=== PATIENT | male | born 1965 | race Caucasian/White ===

== ENCOUNTER 2016-04-16 06:03 | Emergency (ER) | payer BC, OTHER ==
[2016-04-16 06:21] VITALS: TEMP 98; BMI 29.6
[2016-04-16 06:58] LABS: URINE OCCULT BLOOD 2+ (NEG/TRACE); WBC/URINE 0-2 (0-2)
[2016-04-16 07:16] LABS: LEUKOCYTES/URINE UR COLOR MASKS RXN (NEGATIVE); NITRITE/URINE UR COLOR MASKS RXN (NEGATIVE)
[2016-04-16 07:20] LABS: RBC/URINE 30-40 (0-2)
[2016-04-16] MEDS ORDERED: NS 1,000 ML IV ONE (07:31)
[2016-04-16] MEDS ORDERED: MORPHINE 4 MG/ML INJECTION IV ONE (07:31)
[2016-04-16] MEDS ORDERED: ONDANSETRON HCL 4 MG/2 ML VIAL IV ONE (07:31)
[2016-04-16 07:35] VITALS: BP 168/94; PULSE 78
[2016-04-16] MEDS ORDERED: OXYCODONE HCL 5 MG TABLET PO ONE (07:38)
[2016-04-16] MEDS ORDERED: ONDANSETRON HCL 4 MG ODT TAB PO ONE (07:38)
--- NOTE | 2016-04-16 07:41 | EDPRACDOC ---
- General Information Chief Complaint: Male Urogenital Problems Stated Complaint: RT SIDE PAIN Time Seen by Provider: 04/16/16 07:31 Information Source: Patient Mode Of Arrival: Car Home Medications: Home Medications Atorvastatin Calcium [Lipitor] 40 mg PO HS 01/21/15 Cetirizine HCl [Zyrtec] 10 mg PO DAILY 01/21/15 Epinephrine [Epipen] 0.3 mg IM DAILY PRN 01/21/15 FA/Mv,Ca,Iron,Min/Lycopene/Lut [Centrum Tablet] 1 each PO DAILY 01/21/15 L.acidoph & Paracasei,B.lactis [Probiotic] 1 each PO DAILY 01/21/15 Metformin HCl 500 mg PO BID 01/21/15 Methylcellulose [Fiber] 500 mg PO DAILY 01/21/15 Aspirin (OrangeEnteric Coated) [Ecotrin] 325 mg PO BIDWM #90 tablet 02/10/15 Docusate-Senna Concentrate [Senokot S or Esperanza Colace] 2 tab PO HS #100 tablet Oxycodone Immediate Release [Oxycodone Immediate Release (OxyIR)] 5 mg PO Q4 # 60 tablet 02/10/15 Ibuprofen Tablet [Motrin] 800 mg PO TID #30 tab 04/16/16 Ondansetron HCl [Zofran] 4 mg PO TID PRN #14 tablet 04/16/16 Oxycodone Immediate Release [Oxycodone Immediate Release (OxyIR)] 5 - 15 mg PO Q4H PRN #30 tab 04/16/16 Tamsulosin HCl [Flomax] 0.4 mg PO QAM #10 cap 04/16/16 Allergies/Adverse Reactions: Allergies Allergy/AdvReac Type Severity Reaction Status Date / Time venom-honey bee Allergy Severe Anaphylaxis Verified 04/16/16 06:21 [bee venom (honey bee)] * - History of Present Illness Onset: 1 weeks Pain Location: Reports: Right, Flank Pain Radiates To: Reports: Other (RLQ) Pain Caused By: Reports: Spontaneous Circumstances: Reports: Unknown Relevant History: Reports: Urolithiasis (REMOTELY). Denies: Chronic back pain Pain Severity: Reports: Moderate Pain Quality: Reports: Aching, Sharp Worsened By: Reports: Nothing Associated Signs and Symptoms: Reports: Hematuria (SEEN URGENT CARE 4 DAYS AGO) , Nausea. Denies: Vomiting ED Past Medical History - History Reviewed Yes Nurses notes reviewed and agree except as marked - Patient Medical History Cardiac History: Reports: Hypercholesterolemia GI/ History: Reports: Kidney Stones Musculoskeletal History: Reports: Arthritis (KNEES) Psychological History: Denies: Depression Systemic History: Reports: Diabetes - Family Medical History Reports: Hypertension (MOTHER, GM), Diabetes (PATERNAL GM), Cancer (GM UNKNOWN TYPE OF CA). Denies: Stroke, Cardiac Disorders - Social Medical History Smoking Status: Never smoker EDM Review of Systems - Review of Systems ROS Negative Except as Marked: Yes All systems reviewed and were negative except as marked - Physical Exam Constitutional: Alert, Distress (MILD) Oriented to: Time, Person, Place Last recorded Vital Signs: Last Vital Signs Temp 98 F 04/16/16 06:14 Pulse 78 04/16/16 07:31 Resp 18 04/16/16 07:31 BP 168/94 04/16/16 07:31 Pulse Ox 94 04/16/16 07:31 Oxygen Pulse Oxygen Saturation 94 O2 Device Oxygen Flow Rate Fraction of Inspired Oxygen ( FIO2) - HEENT Head: Normal Eye Exam: Normal. negative: Pale Conjunctiva, Scleral Icterus Oropharynx: Normal. negative: Membranes Dry Neck: Normal - Respiratory/Cardiovascular Respiratory: Normal - CTA Cardiovascular: Normal - GI Auscultation: Normal Palpation: Normal Tenderness: Non tender. negative: Guarding, RLQ, Rebound, Rigidity - Musculoskeletal Back: Normal. negative: CVA Tenderness Extremities: Normal - Neurologic Memory Impaired: Normal Mood Description: Normal Thought: Coherent Perception: Normal - Results Urine Color [place] 04/16/16 06:30 Urine Clarity Clear 04/16/16 06:30 Urine pH 6.0 (5.0-8.0) 04/16/16 06:30 Ur Specific [place] 1.015 (1.003-1.035) 04/16/16 06:30 Urine Protein Ur color masks rxn (NEG/TRACE) 04/16/16 06:30 Urine Glucose (UA) Neg (NEGATIVE) 04/16/16 06:30 Urine Ketones Neg (NEGATIVE) 04/16/16 06:30 Urine Occult Blood 2+ (NEG/TRACE) H 04/16/16 06:30 Urine Nitrite Ur color masks rxn (NEGATIVE) 04/16/16 06:30 Urine Bilirubin Ur color masks rxn (NEGATIVE) 04/16/16 06:30 Urine Urobilinogen Ur color masks rxn MG/DL (0-1) 04/16/16 06:30 Ur Leukocyte Esterase Ur color masks rxn (NEGATIVE) 04/16/16 06:30 Urine RBC 30-40 (0-2) H 04/16/16 06:30 Urine WBC 0-2 (0-2) 04/16/16 06:30 Urine Bacteria Few (NEG/FEW) 04/16/16 06:30 Hyaline Casts 2-5 (0-2) H 04/16/16 06:30 Urine Mucus Mod (NEG/OCC) H 04/16/16 06:30 Lab Results 04/16/16 06:30 Urine Color [place] Urine Clarity Clear Urine pH 6.0 Ur Specific [place] 1.015 Urine Protein Ur color masks rxn Urine Glucose (UA) Neg Urine Ketones Neg Urine Occult Blood 2+ H Urine Nitrite Ur color masks rxn Urine Bilirubin Ur color masks rxn Urine Urobilinogen Ur color masks rxn Ur Leukocyte Esterase Ur color masks rxn Urine RBC 30-40 H Urine WBC 0-2 Urine Bacteria Few Hyaline Casts 2-5 H Urine Mucus Mod H - Diagnostic Imaging Abdomen Image interpreted by: Radiologist Patient Name: KIMBERLY SINHA LOC: ED : 1965 AGE: 50 Order Date:04/16/16 Date of Service:05/02 Report # [id number] Ord Physician: Natalee Swanson MD Exam # [id number] Emergency Physician: Natalee Swanson MD Exam(s): [id number] CT/CT UROGRAM CLINICAL DATA: Right flank pain for 1 week. EXAM: CT ABDOMEN AND PELVIS WITHOUT CONTRAST TECHNIQUE: Multidetector CT imaging of the abdomen and pelvis was performed following the standard protocol without IV contrast. COMPARISON: CT scan of December 12, 2010. FINDINGS: Visualized lung bases are unremarkable. No significant osseous abnormality is noted. Solitary gallstone is noted. Probable fatty infiltration of the liver is noted with sparing around the gallbladder fossa. The spleen and pancreas appear unremarkable on these unenhanced images. Adrenal glands appear normal. Nonobstructive calculus is noted in left kidney. Moderate right hydroureteronephrosis with perinephric stranding is noted secondary to 5 mm calculus at right ureterovesical junction. Atherosclerosis of abdominal aorta is noted without aneurysm formation. The appendix appears normal. There is no evidence of bowel obstruction. No abnormal fluid collection is noted. No significant adenopathy is noted. IMPRESSION: Solitary gallstone is noted. Nonobstructive left renal calculus is noted. Probable fatty infiltration of the liver is noted. Moderate right hydroureteronephrosis with perinephric stranding is noted secondary to 5 mm calculus at right ureterovesical junction. Electronically Signed By: Man Gilmore Jr, M.D. On: 04/16/2016 08:57 Electronically Signed By: Man Gilmore MD Electronically Signed Date/Time: [id number] Dictate Date/Time: 04/16/1650 Technologist: Radha Mcneill Transcribed By: Jazzmine Transcribed Date/Time: 04/16/16 0857 - Additional Information SYMPTOMS FOR ONE WEEK, NOT IMPROVING, ACTUALLY GETTING WORSE. CT WARRANTED. - Departure Disposition: Home Condition: Stable Final Diagnosis: Nephrolithiasis, Right ureteral calculus Cholelithiasis Qualifiers: Cholelithiasis location: gallbladder Cholecystitis presence: without cholecystitis Biliary obstruction: without biliary obstruction Qualified Code(s) : K80.20 - Calculus of gallbladder without cholecystitis without obstruction Instructions: Kidney Stones (ED), Renal Colic (ED), Gallstones (ED) Education/Counseling Given To: Patient, Family Member Education/Counseling Given Regarding: Diagnosis, Treatment, Prognosis Referrals: Jesus De La Cruz MD [Primary Care Provider] - As Needed Prescriptions: Ibuprofen Tablet [Motrin] 800 mg PO TID #30 tab Ondansetron HCl [Zofran] 4 mg PO TID PRN #14 tablet PRN Reason: NAUSEA OR VOMITING Oxycodone Immediate Release [Oxycodone Immediate Release (OxyIR)] 5 - 15 mg PO Q4H PRN #30 tab PRN Reason: Pain Tamsulosin HCl [Flomax] 0.4 mg PO QAM #10 cap Additional Instructions: RETURN TO THE ED FOR FEVER, UNCONTROLLED PAIN OR UNCONTROLLED VOMITING. DRINK LOTS OF FLUID.
--- NOTE | 2016-04-16 09:00 | DIRPT ---
CLINICAL DATA: Right flank pain for 1 week. EXAM: CT ABDOMEN AND PELVIS WITHOUT CONTRAST TECHNIQUE: Multidetector CT imaging of the abdomen and pelvis was performed following the standard protocol without IV contrast. COMPARISON: CT scan of December 12, 2010. FINDINGS: Visualized lung bases are unremarkable. No significant osseous abnormality is noted. Solitary gallstone is noted. Probable fatty infiltration of the liver is noted with sparing around the gallbladder fossa. The spleen and pancreas appear unremarkable on these unenhanced images. Adrenal glands appear normal. Nonobstructive calculus is noted in left kidney. Moderate right hydroureteronephrosis with perinephric stranding is noted secondary to 5 mm calculus at right ureterovesical junction. Atherosclerosis of abdominal aorta is noted without aneurysm formation. The appendix appears normal. There is no evidence of bowel obstruction. No abnormal fluid collection is noted. No significant adenopathy is noted. IMPRESSION: Solitary gallstone is noted. Nonobstructive left renal calculus is noted. Probable fatty infiltration of the liver is noted. Moderate right hydroureteronephrosis with perinephric stranding is noted secondary to 5 mm calculus at right ureterovesical junction. Electronically Signed By: Man Gilmore Jr, M.D. On: 04/16/2016 08:57
[2016-04-16] MEDS ORDERED: IBUPROFEN 800 MG TAB PO ONE (09:05)
== END 2016-04-16 09:20 | disposition home or self-care (01) ==
LOC: ED 06:03
DX: N20.2 Calculus of kidney with calculus of ureter (principal); K80.20 Calculus of gallbladder without cholecystitis without obstruction
CPT/HCPCS: 74176; 81001; 99284; J3490